=== PATIENT | female | born 1975 | race Caucasian/White ===

== ENCOUNTER → 2017-06-22 | Outpatient (CLI) | payer BC ==
[~2017-06-22] MED LIST: ALBU90OI INH; ASCO500 PO; FLUT110OIA INH; Flonase 0.05% N16 GM; IBUP400 PO
[2017-06-22 10:35] LABS: Protein, Urine Quantitative 7.1 mg/dL (0.0-11.9)
== END | disposition home or self-care (01) ==
LOC: LAB SHORT 06:10 → LAB 06:10 → LAB FUT 06-19 16:35
PROVIDERS: Internal Medicine
DX: N17.9 Acute kidney failure, unspecified (principal)
CPT/HCPCS: 81050; 84156